=== PATIENT | female | born 1950 | race Caucasian/White ===

== ENCOUNTER → 2017-08-01 | Outpatient (CLI) | payer OTHER | LOC: BMCIMAGING 11:07 | PROVIDERS: ATTEND Orthopaedic Surgery | DX: M16.0 Bilateral primary osteoarthritis of hip (principal); M51.36 Other intervertebral disc degeneration, lumbar region ==

== ENCOUNTER → 2017-10-12 | Outpatient (CLI) | payer OTHER | LOC: BMCIMAGING 11:03 | PROVIDERS: ATTEND Physician Assistant | DX: M25.551 Pain in right hip (principal) ==

== ENCOUNTER → 2017-10-19 | Outpatient (CLI) | payer OTHER | LOC: BMCIMAGING 13:08 | PROVIDERS: ATTEND Orthopaedic Surgery Hand Surgery | DX: M25.551 Pain in right hip (principal) ==

== ENCOUNTER → 2017-10-26 | Outpatient (CLI) | payer OTHER | LOC: BMCIMAGING 13:16 | PROVIDERS: ATTEND Orthopaedic Surgery Hand Surgery | PROC: 3E0U3BZ Introduction of Anesthetic Agent into Joints, Percutaneous Approach (ICD-10-PCS; principal; 2017-10-26) | PROC: 3E0U33Z Introduction of Anti-inflammatory into Joints, Percutaneous Approach (ICD-10-PCS; principal; 2017-10-26) | DX: M25.551 Pain in right hip (principal) ==

== ENCOUNTER → 2018-02-23 | Outpatient (CLI) | payer OTHER | LOC: FIMAGING 13:35 | PROVIDERS: ATTEND Internal Medicine | DX: Z12.31 Encounter for screening mammogram for malignant neoplasm of breast (principal) ==

== ENCOUNTER 2018-06-21 07:21 | Inpatient (IN) | payer OTHER ==
--- NOTE | 2018-06-21 07:10 | PDHPUP ---
History & Physical Update H&P update statement: This history and physical update is based on an assessment of the patient which was completed after admission or registration (within 24 hours), but prior to the surgery/procedure. H&P update: H&P reviewed & patient examined, no change in patient's condition since H&P completed
[~2018-06-21 07:21] MED LIST: ROPIVACAINE 0.2% 80 MG, EPINEPHrine 0.2 MG, KETOROLAC TROMETHAMINE 30 MG in SYRINGE 0 ML IU ONE; TRANEXAMIC ACID 3,000 MG in NS (SYRINGE) 50 ML IRR ONE
[2018-06-21] MEDS ORDERED: ACETAMINOPHEN 325 MG TAB PO ONE (07:33)
[2018-06-21] MEDS ORDERED: ceFAZolin 2 GM/DEXTROSE 100 ML IV ONE (07:33)
[2018-06-21] MEDS ORDERED: DEXAMETHASONE 4 MG/ML VIAL IVP ONE (07:33)
[2018-06-21] MEDS ORDERED: FAMOTIDINE 20 MG TAB PO ONE (07:33)
[2018-06-21] MEDS ORDERED: LIDOCAINE 1% 2 ML INJ ID PRN (07:42)
[2018-06-21] MEDS ORDERED: LR 1,000 ML IV ONE (07:42)
[2018-06-21] MEDS ORDERED: TRANEXAMIC ACID 3,000 MG/50 ML BAG IRR ONE (07:46)
--- NOTE | 2018-06-21 08:57 | PDANEPAE ---
ANE History of Present Illness OA here for ROBERT ANE Past Medical History - Cardiovascular History Hx Hypertension: No Hx Arrhythmias: Yes Hx Chest Pain: No Hx Coronary Artery / Peripheral Vascular Disease: No Cardiovascular History Comment: Ablation Afib/SVT 2015 - Pulmonary History Hx COPD: No Hx Asthma/Reactive Airway Disease: No Hx Recent Upper Respiratory Infection: No Hx Oxygen in Use at Home: No Hx Sleep Apnea: No Sleep Apnea Screening Result - Last Documented: Negative - Neurologic History Hx Cerebrovascular Accident: No Hx Seizures: No Hx Dementia: No - Endocrine History Hx Diabetes: No - Renal History Hx Renal Disorders: No - Liver History Hx Hepatic Disorders: No - Neurological & Psychiatric Hx Hx Neurological and Psychiatric Disorders: No - Cancer History Hx Cancer: No - Congenital Disorder History Hx Congenital Disorders: Yes Congenital History Comment: arthritis - GI History Hx Gastrointestinal Disorders: No Gastrointestinal History Comment: 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 2016 ablation Afib/SVT ANE Review of Systems Review of Systems: - Exercise capacity METS (RN): 6 METS ANE Patient History - Allergies Allergies/Adverse Reactions: gluten Allergy (Verified 06/21/18 07:50) - Home Medications Home Medications: hydrOXYzine HCL 5 mg PO HS 10/06/09 [Last Taken 06/20/18] [place]-3 Fatty Acids [Fish Oil 1000 mg (*)] 1,000 mg PO DAILY 06/01/16 [Last Taken 3 Weeks Ago ~05/31/18] Atorvastatin Calcium [Lipitor 20 mg (*)] 20 mg PO HS 05/24/18 [Last Taken ] Carboxymethylcellulose 1% [Refresh Celluvisc (*)] 1 drop EACHEYE DAILY PRN 05/24 [Last Taken 2 Weeks Ago ~06/07/18] Herbals/Supplements -Info Only 1 each PO DAILY 05/24/18 [Last Taken 3 Weeks Ago ~05/31/18] Zolpidem Tartrate [Ambien 5MG (*)] 5 mg PO HS 05/29/18 [Last Taken 06/20/18] - NPO status NPO Status: no food or drink >8 hours NPO Since - Liquids (Date): 06/21/18 NPO Since - Liquids (Time): 06:00 NPO Since - Solids (Date): 06/21/18 NPO Since - Solids (Time): 19:00 - Anes Hx Anes Hx: no prior problems - Smoking Hx Smoking Status: Never smoked - Alcohol Use Alcohol Use: Rarely - Family Anes Hx Family Anes Hx: none Family Hx Anesthesia Complications: none ANE Labs/Vital Signs - Vital Signs Blood Pressure: 128/86 Heart Rate: 62 Respiratory Rate: 18 O2 Sat (%): 96 Height: 165.1 cm Weight: 57.153 kg ANE Physical Exam - Airway Neck exam: FROM Mallampati Score: Class 2 Mouth exam: normal dental/mouth exam - Pulmonary Pulmonary: no respiratory distress, clear to auscultation - Cardiovascular Cardiovascular: regular rate and rhythym, no murmur, rub, or gallop - ASA Status ASA Status: II ANE Anesthesia Plan Anesthesia Plan: GA with mask, spinal
[2018-06-21] MEDS ORDERED: MIDAZOLAM 2 MG/2 ML VIAL IVP ONE (08:59)
[2018-06-21] MEDS ORDERED: PROPOFOL/EMULSION 500 MG/50 ML BOTTLE IV ONE (09:05)
[2018-06-21] MEDS ORDERED: TEMAZEPAM 15 MG CAP PO PRN (10:39)
[2018-06-21] MEDS ORDERED: ONDANSETRON 4 MG/2 ML VIAL IVP PRN ×2 (10:39→10:44)
[2018-06-21] MEDS ORDERED: MAGNESIUM HYDROXIDE 30 ML UDCUP PO PRN (10:39)
[2018-06-21] MEDS ORDERED: diphenhydrAMINE 25 MG CAP PO PRN (10:39)
[2018-06-21] MEDS ORDERED: DIPHENOXYLATE/ATROPINE LOMOTIL 1 TAB PO PRN (10:39)
[2018-06-21] MEDS ORDERED: PROMETHAZINE HCL 25 MG/ML INJ IVP PRN (10:39)
[2018-06-21] MEDS ORDERED: PROMETHAZINE HCL 25 MG SUPPR PR PRN (10:39)
[2018-06-21] MEDS ORDERED: ONDANSETRON DISINTEGRATING 4 MG TAB PO PRN (10:39)
[2018-06-21] MEDS ORDERED: POLYETHYLENE GLYCOL 3350 17 GM PKT PO PRN (10:39)
[2018-06-21] MEDS ORDERED: LACTULOSE 20 GM/30 ML UDCUP PO PRN (10:39)
[2018-06-21] MEDS ORDERED: METOCLOPRAMIDE 10 MG/2 ML VIAL IVP PRN (10:39)
[2018-06-21] MEDS ORDERED: BISACODYL 10 MG SUPP PR PRN (10:39)
--- NOTE | 2018-06-21 10:39 | POSTOPPROG ---
Post Op Note Date of Operation: 06/21/18 Surgeon: Shantel Goss Metalworking Specialist: avni goss PA-C Anesthesiologist: dr. anaya Anesthesia: Spinal Pre-op Diagnosis: right hip OA Post-op Diagnosis: same Indication: right hip pain Procedure: R ROBERT ant approach, robot assisted Findings: severe hip OA Inf/Abcess present in the surg proc area at time of surgery?: No EBL: 100-500
[2018-06-21] MEDS ORDERED: ACETAMINOPHEN 500 MG TAB PO PRN (10:44)
[2018-06-21] MEDS ORDERED: DIAZEPAM 5 MG/ML 1 ML SYR IVP PRN (10:44)
[2018-06-21] MEDS ORDERED: oxyCODONE IR 5 MG TAB PO PRN (10:44)
[2018-06-21] MEDS ORDERED: NALOXONE HCL 0.4 MG/ML INJ IVP PRN (10:44)
[2018-06-21] MEDS ORDERED: HYDROmorphONE/DILAUDID 1 MG/ML INJ IVP PRN (10:44)
[2018-06-21] MEDS ORDERED: HYDROCODONE/APAP 5/325 TAB PO PRN (10:44)
[2018-06-21] MEDS ORDERED: fentaNYL 100 MCG/2 ML INJ IVP PRN (10:44)
--- NOTE | 2018-06-21 10:48 | POSTANESTH ---
Post Anesthetic Evaluation Cardiovascular Status: Normal, Stable, Similar to Pre-Op Cond Respiratory Status: Normal, Stable, Similar to Pre-op Cond. Level of Consciousness/Mental Status: Can Participate in Eval, Alert and Oriented Pain Control: Adequate, Prn Tx Ordered Nausea/Vomiting Control: Adequate, Prn Tx Ordered Complications Possibly Related to Anesthesia: None Noted
[2018-06-21] MEDS ORDERED: CARBOXYMETHYLCELLULOSE 1% 0.4 ML DROPERETTE EACHEYE PRN (10:58)
[2018-06-21] MEDS ORDERED: LR 1,000 ML IV SCH (11:00)
[2018-06-21] MEDS ORDERED: BALANCED SALT IRRIG SOLN 15 ML OPHT.BTL ONE (11:24)
[2018-06-21] MEDS ORDERED: BALANCED SALT IRRIG SOLN 15 ML OPHT.BTL OP ONE (11:45)
[2018-06-21] MEDS: oxyCODONE IR 5 MG TAB PO PRN (14:40)
[2018-06-21] MEDS: CYCLOBENZAPRINE 10 MG TAB PO PRN ×2 (16:31→23:13)
[2018-06-21] MEDS: ACETAMINOPHEN 325 MG TAB PO SCH ×2 (16:31→18:33)
[2018-06-21] MEDS: ceFAZolin 2 GM/DEXTROSE 100 ML IV SCH (16:32)
--- NOTE | 2018-06-21 16:46 | PDMN ---
Medical Necessity Medical necessity: Mc[facility] IP only surgery; cpt 27746 R ROBERT
[2018-06-21] MEDS: ERYTHROMYCIN 0.5% 1 GM OPHT.OINT LEFTEYE SCH ×2 (18:33→22:06)
[2018-06-21] MEDS ORDERED: ATORVASTATIN CALCIUM 20 MG TAB PO SCH (21:00)
[2018-06-21] MEDS ORDERED: ZOLPIDEM TARTRATE 5 MG TAB PO SCH (21:00)
[2018-06-21] MEDS ORDERED: hydrOXYzine HCL 10 MG TAB PO SCH (21:00)
[2018-06-21] MEDS: ASPIRIN 81 MG CHEWABLE TAB PO SCH (21:24)
[2018-06-21] MEDS: FAMOTIDINE 20 MG TAB PO SCH (21:24)
[2018-06-21] MEDS: SENNOSIDES/DOCUSATE SODIUM TAB PO SCH (21:25)
[2018-06-22] MEDS: ceFAZolin 2 GM/DEXTROSE 100 ML IV SCH (00:27)
[2018-06-22] MEDS: ACETAMINOPHEN 325 MG TAB PO SCH ×2 (00:28→06:02)
[2018-06-22 07:25] VITALS: BP 96/65
--- NOTE | 2018-06-22 08:50 | SOAPPROG ---
SOAP Progress Note Assessment/Plan: Assessment: Patient is doing well POD 1 s/p R ROBERT Pain management: pain is well controlled on oral pain meds. VTE ppx: recommend aspirin 81 mg BID for 4 weeks, cont JOZEF and SCDs Anemia: level is expected initially postop. Asymptomatic. Continue to monitor D/c planning: d/c to home today pending release from PT postop urinary retention: straight cath'd yesterday, resolved today cornea scratched: pain is improving Plan: 06/22/18 08:48 06/22/18 08:49 Subjective: Ghada is doing well ,denies SOB, chest pain and n/V. eye has improved slightly Objective: Vital Signs Temp Pulse Resp BP Pulse Ox 36.6 C 77 15 96/65 L 94 06/22/18 07:24 06/22/18 07:24 06/22/18 07:24 06/22/18 07:24 06/22/18 07:24 Laboratory Results 06/22/18 04:41 06/21/18 06/22/18 06/23/18 05:59 05:59 05:59 Intake Total 1470 Output Total 2150 Balance -680 RLE: incision dressing is clean and dry, NVI, +pf/df ICD10 Worksheet Patient Problems: Problems Problem Status Onset Primary localized osteoarthritis of right hip Acute Supraventricular tachycardia Acute
--- NOTE | 2018-06-22 09:24 | GOP ---
[f rep st] OPERATIVE REPORT DATE OF OPERATION: 06/21/2018 SURGEON: Rachel Griffin MD SVP [employer]NERSHIPS: Brenda Griffin PA-C. PREOPERATIVE DIAGNOSIS: Right hip osteoarthritis. POSTOPERATIVE DIAGNOSIS: Right hip osteoarthritis. PROCEDURE PERFORMED: Right total hip arthroplasty with computer navigation robotic assistance. FINDINGS: ESTIMATED BLOOD LOSS: 200 cc. DESCRIPTION OF PROCEDURE: IMPLANT: Accolade II size 6, a 127 acetabular component, Trident II, 50 mm. Liner is a Trident X3 3 2 mm. Head is a Biolox Delta 32 mm +0. /[id number]/MODL
[2018-06-22] MEDS: ERYTHROMYCIN 0.5% 1 GM OPHT.OINT LEFTEYE SCH (09:37)
[2018-06-22] MEDS: ASPIRIN 81 MG CHEWABLE TAB PO SCH (09:59)
[2018-06-22] MEDS: FAMOTIDINE 20 MG TAB PO SCH (10:00)
[2018-06-22] MEDS: oxyCODONE IR 5 MG TAB PO PRN (10:00)
[2018-06-22] MEDS: SENNOSIDES/DOCUSATE SODIUM TAB PO SCH (10:01)
--- NOTE | 2018-06-22 12:15 | GDS ---
[f rep st] DISCHARGE SUMMARY ADMISSION DIAGNOSIS: Right hip osteoarthritis. DISCHARGE DIAGNOSIS: Right hip osteoarthritis. PROCEDURE: Right total hip arthroplasty with robotic assisted. VTE PROPHYLAXIS: Recommend aspirin 81 mg twice daily for 4 weeks. BRIEF DESCRIPTION OF HOSPITAL STAY: Patient was admitted for an elective joint arthroplasty. The pa abhay tolerated the procedure well and has passed physical therapy. The patient was given appropriat e antibiotic prophylaxis and venous thromboembolism prophylaxis. The patient's pain was well control led on oral pain medication, patient was holding down food, and had urinated. Decision was made to d ischarge the patient. The patient was given post-operative prescriptions pre-operatively. PLAN: Follow up as scheduled in Dr. Griffin's office on 07/13 at 11 a.m. /[id number]/MODL
== END 2018-06-22 10:48 | disposition home or self-care (01) | DRG 470 ==
LOC: F3N 07:21
PROVIDERS: ADMIT Orthopaedic Surgery; ATTEND Orthopaedic Surgery
PROC: 0SR904Z Replacement of Right Hip Joint with Ceramic on Polyethylene Synthetic Substitute, Open Approach (ICD-10-PCS; principal; 2018-06-21 09:00)
PROC: 8E0Y0CZ Robotic Assisted Procedure of Lower Extremity, Open Approach (ICD-10-PCS; principal; 2018-06-21 09:00)
DX: M16.11 Unilateral primary osteoarthritis, right hip (principal); R33.9 Retention of urine, unspecified
CPT/HCPCS: 97116-GP; 97161-GP; G8978-GP-CI; G8979-GP-CI; G8980-GP-CI; J0171; J0690; J1100; J1885; J2250; J2704; J2795